=== PATIENT | female | born 1940 | race Caucasian/White ===

== ENCOUNTER 2018-01-22 14:27 | Emergency (ER) | payer OTHER ==
--- NOTE | 2018-01-22 14:43 | EDPHY ---
H & P Time Seen by Provider: 01/22/18 14:43 HPI/ROS: CHIEF COMPLAINT: Nausea, vomiting, diarrhea HISTORY OF PRESENT ILLNESS: The patient presents the ED for evaluation of 4 days of nausea, vomiting and diarrhea. The patient denies any hematemesis or melena. She denies any recent travel outside the [place] or antibiotic use. The patient does complain of generalized abdominal cramping pain. She denies any fever, cough or congestion. The patient denies any recent medication changes. REVIEW OF SYSTEMS: A comprehensive 10 point review of systems is otherwise negative aside from elements mentioned in the history of present illness. Source: Patient Exam Limitations: No limitations - Personal History Tetanus Vaccine Date: > 10 YEARS - Medical/Surgical History Hx Asthma: No Hx Chronic Respiratory Disease: No Hx Diabetes: No Hx Cardiac Disease: No Hx Renal Disease: No Hx Cirrhosis: No Hx Alcoholism: No Hx HIV/AIDS: No Hx Splenectomy or Spleen Trauma: No Other PMH: HTN, PTSD, TBI, fibromyalgia, migraines, TIA 21 of November. surgery uterus, fibroids, appendectomy, tonsillectomy - Social History Smoking Status: Former smoker - Physical Exam Exam: General Appearance: Elderly female, no acute distress Eyes: Pupils equal and round no pallor or injection ENT, Mouth: Mucous membranes moist Respiratory: There are no retractions, lungs are clear to auscultation Cardiovascular: Regular rate and rhythm Gastrointestinal: Slight distension, hyperactive bowel sounds, minimal generalized tenderness, no peritoneal signs Neurological: 5/5 strength all 4 extremities Skin: Warm and dry, no rashes Musculoskeletal: Neck is supple nontender Extremities: symmetrical, full range of motion Constitutional: Initial Vital Signs Temperature (C) 37.7 C 01/22/18 14:27 Heart Rate 108 H 01/22/18 14:27 Respiratory Rate 16 01/22/18 14:27 Blood Pressure 173/103 H 01/22/18 14:27 O2 Sat (%) 92 01/22/18 14:27 O2 Delivery Mode Room Air Allergies/Adverse Reactions: epinephrine [Epinephrine] Allergy (Intermediate, Verified 01/22/18 14:47) morphine Allergy (Intermediate, Verified 01/22/18 14:47) Sulfa (Sulfonamide Antibiotics) Allergy (Intermediate, Verified 01/22/18 14:47) hydromorphone HCl [From Dilaudid] Allergy (Verified 01/22/18 14:47) iodine Allergy (Verified 01/22/18 14:47) prednisone Allergy (Verified 01/22/18 14:47) pregabalin [From Lyrica] Allergy (Verified 01/22/18 14:47) MUSCLE RELAXANT Allergy (Uncoded 01/22/18 14:47) Home Medications: Medication Instructions Recorded Candesartan Cilexetil [Atacand] 32 mg PO DAILY 11/21/13 Oxycodone HCl/Acetaminophen 1 each PO HS PRN 11/21/13 [Percocet 10-325 mg Tablet] oxyCODONE/APAP 5/325 [Percocet 0.5 - 1 tab PO Q4H PRN 11/21/13 5/325] ALPRAZOLAM XR 03/01/14 Levomefolate/Algal Oil 08/21/15 [Deplin-Algal Oil 15 mg Capsule] Ondansetron [Ondansetron Odt] 08/21/15 Oxycontin 08/21/15 Polyethylene Glycol 3350 [Miralax 08/21/15 17 gm (OTC)] Medical Decision Making ED Course/Re-evaluation: The patient presents to the ED with gastroenteritis causing associated vomiting and diarrhea. The patient is afebrile. She is well-appearing. She had slight tachycardia and mild dehydration. The patient received IV fluid rehydration. The patient's laboratory studies are reassuring. The patient underwent serial examinations in the ED and her vomiting has resolved. This point time I do feel the patient can be discharged home with instructions to use Zofran and and Imodium. The patient was re-evaluated again by myself at 5:00 p.m.. I reviewed the results of her laboratory studies, discharge plan, return precautions and working diagnosis. Differential Diagnosis: Differential diagnosis considered includes gastroenteritis, dehydration, metabolic abnormality, perforation, obstruction - Data Points Laboratory Results: Laboratory Results 01/22/18 14:40 01/22/18 14:40 01/22/18 01/22/18 14:40 14:40 WBC 8.55 10^3/uL 10^3/uL (3.80-9.50) RBC 4.78 10^6/uL 10^6/uL (4.18-5.33) Hgb 15.3 g/dL g/dL (12.6-16.3) Hct 43.5 % % (38.0-47.0) MCV 91.0 fL fL (81.5-99.8) MCH 32.0 pg pg (27.9-34.1) MCHC 35.2 g/dL g/dL (32.4-36.7) RDW 12.5 % % (11.5-15.2) Plt Count 257 10^3/uL 10^3/uL (150-400) MPV 10.3 fL fL (8.7-11.7) Neut % (Auto) 89.7 % H % (39.3-74.2) Lymph % (Auto) 5.7 % L % (15.0-45.0) [place] % (Auto) 4.4 % L % (4.5-13.0) Eos % (Auto) 0.0 % L % (0.6-7.6) Baso % (Auto) 0.1 % L % (0.3-1.7) Nucleat RBC Rel Count 0.0 % % (0.0-0.2) Absolute Neuts (auto) 7.66 10^3/uL H 10^3/uL (1.70-6.50) Absolute Lymphs (auto) 0.49 10^3/uL L 10^3/uL (1.00-3.00) Absolute Monos (auto) 0.38 10^3/uL 10^3/uL (0.30-0.80) Absolute Eos (auto) 0.00 10^3/uL L 10^3/uL (0.03-0.40) Absolute Basos (auto) 0.01 10^3/uL L 10^3/uL (0.02-0.10) Absolute Nucleated RBC 0.00 10^3/uL 10^3/uL (0-0.01) Immature Gran % 0.1 % % (0.0-1.1) Immature Gran # 0.01 10^3/uL 10^3/uL (0.00-0.10) Sodium 137 mEq/L mEq/L (135-145) Potassium 4.4 mEq/L mEq/L (3.5-5.2) Chloride 97 mEq/L mEq/L (97-110) Carbon Dioxide 26 mEq/l mEq/l (22-31) Anion Gap 14 mEq/L mEq/L (8-16) BUN 16 mg/dL mg/dL (7-23) Creatinine 0.7 mg/dL mg/dL (0.6-1.0) Estimated GFR > 60 Glucose 122 mg/dL H mg/dL (70-100) Calcium 9.1 mg/dL mg/dL (8.5-10.4) Total Bilirubin 1.0 mg/dL mg/dL (0.1-1.4) Conjugated Bilirubin 0.4 mg/dL mg/dL (0.0-0.5) Unconjugated Bilirubin 0.6 mg/dL mg/dL (0.0-1.1) AST 33 IU/L IU/L (14-46) ALT 59 IU/L H IU/L (9-52) Alkaline Phosphatase 75 IU/L IU/L (38-126) Total Protein 6.8 g/dL g/dL (6.3-8.2) Albumin 4.0 g/dL g/dL (3.5-5.0) Lipase 58 IU/L IU/L (23-300) Medications Given: Discontinued Medications Sodium Chloride (Ns) 1,000 mls @ 0 mls/hr IV EDNOW ONE; Wide Open PRN Reason: Protocol Stop: 01/22/18 14:45 Last Admin: 01/22/18 14:55 Dose: 1,000 mls Ondansetron HCl (Zofran) 4 mg IVP EDNOW ONE Stop: 01/22/18 14:51 Last Admin: 01/22/18 14:56 Dose: 4 mg Departure - Departure Disposition: Home, Routine, Self-Care Clinical Impression: Gastroenteritis Condition: Good Instructions: Gastroenteritis (ED), Dehydration (ED) Additional Instructions: 1. Zofran as needed for nausea. 2. Imodium as needed for diarrhea 3. Return to the ED for markedly worsening symptoms or other concerns. 4. Follow up with her primary care provider as needed.
[2018-01-22] MEDS ORDERED: NS 1,000 ML IV ONE (14:44)
[2018-01-22] MEDS ORDERED: ONDANSETRON 4 MG/2 ML VIAL IVP ONE (14:50)
[2018-01-22 15:04] LABS: PLATELET COUNT 257 10^3/uL (150-400)
[2018-01-22 18:32] VITALS: BP 182/105
== END 2018-01-22 18:29 | disposition home or self-care (01) ==
LOC: EDUNIT#
DX: K52.9 Noninfective gastroenteritis and colitis, unspecified (principal); I10 Essential (primary) hypertension; E86.9 Volume depletion, unspecified; Z87.891 Personal history of nicotine dependence
CPT/HCPCS: 96374; 99284; J2405

== ENCOUNTER → 2018-03-09 | Outpatient (CLI) | payer OTHER | LOC: BMCIMAGING 12:44 | PROVIDERS: ATTEND Family Medicine | DX: R10.2 Pelvic and perineal pain (principal); R14.0 Abdominal distension (gaseous); G89.29 Other chronic pain; N83.201 Unspecified ovarian cyst, right side; N83.202 Unspecified ovarian cyst, left side; Z90.711 Acquired absence of uterus with remaining cervical stump ==

== ENCOUNTER 2018-12-06 18:53 | Emergency (ER) | payer OTHER ==
--- NOTE | 2018-12-06 18:56 | EDPHY ---
HPI/HX/ROS/PE/MDM Narrative: CHIEF COMPLAINT: Fall, right ankle pain HPI: This patient is a 78 year old female with past medial history including fibromyalgia, chronic pain, hypertension. She arrives today via EMS complaining of right ankle pain following a slip and fall on ice. She is unable to bear weight on the ankle. She denies any other trauma. She did not strike her head or lose consciousness. The patient does take multiple medications for chronic pain and nausea at home, and she declined any medications from EMS in transport. She denies any other recent trauma or illness. REVIEW OF SYSTEMS: A comprehensive 10 system review of systems is otherwise negative aside from elements mentioned in the history of present illness and medical decision making. PMH: Fibromyalgia. Chronic pain. Hypertension. PTSD. Migraines. TIA. Surgeries including appendectomy, tonsillectomy, uterine fibroid removal. SOCIAL HISTORY: Lives in [place]. Retired. Former smoker. PHYSICAL EXAM: General:Patient is alert, in no acute distress. ENT:Eyes are normal to inspection. ENT inspection normal. Neck: Normal inspection. Full range of motion. Respiratory:No respiratory distress. Breath sounds normal bilaterally. Cardiovascular: Regular rate and rhythm. Strong peripheral pulses. Normal cap refill. Abdomen:The abdomen is nontender to palpation. There are no peritoneal signs. There are normal bowel sounds. Back: Normal to inspection. No tenderness to palpation. Skin: Normal color. No rash. Warm and dry. Extremities: Tenderness and swelling over lateral ankle. Neuro: Oriented x3. Normal motor function. Normal sensory function. ED Course: 78 y/o female presents with right ankle pain following a slip and fall on ice. She has pain and swelling over the lateral ankle. Plan for x-ray for further evaluation. 19:13 Reviewed x-ray. Evidence of acute right distal fibular fracture. Reassessed patient. Discussed imaging results. Plan to splint the ankle under standard ED protocol. Plan to discharge home in good condition. We will provide crutches. Provided referral to heart specialist. She will follow up within one week. We discussed pain management for her increased pain due to the fracture. She will call her pain management doctor tomorrow morning to adjust her medication regimen as needed. Follow up and return precautions discussed. She is comfortable with this plan. - Data Points Imaging Results: Imaging Impressions Ankle X-Ray 12/06/18 18:56 Impression: Transverse obliquely oriented distal right fibular fracture, mildly displaced. Imaging: I viewed and interpreted images myself Medications Given: Discontinued Medications Oxycodone HCl (Oxycodone Ir) 10 mg PO EDNOW ONE Stop: 12/06/18 19:48 Last Admin: 12/06/18 19:59 Dose: 10 mg General Time Seen by Provider: 12/06/18 18:54 Initial Vital Signs: Initial Vital Signs Temperature (C) 36.9 C 12/06/18 18:56 Heart Rate 88 12/06/18 18:56 Respiratory Rate 16 12/06/18 18:56 Blood Pressure 146/88 H 12/06/18 18:56 O2 Sat (%) 93 12/06/18 18:56 O2 Delivery Mode Room Air O2 (L/minute) 2.5 Allergies/Adverse Reactions: epinephrine [Epinephrine] Allergy (Intermediate, Verified 12/06/18 18:58) morphine Allergy (Intermediate, Verified 12/06/18 18:58) Sulfa (Sulfonamide Antibiotics) Allergy (Intermediate, Verified 12/06/18 18:58) hydromorphone HCl [From Dilaudid] Allergy (Verified 12/06/18 18:58) iodine Allergy (Verified 12/06/18 18:58) prednisone Allergy (Verified 12/06/18 18:58) pregabalin [From Lyrica] Allergy (Verified 12/06/18 18:58) MUSCLE RELAXANT Allergy (Uncoded 12/06/18 18:58) Home Medications: Medication Instructions Recorded Candesartan Cilexetil [Atacand] 32 mg PO DAILY 11/21/13 Oxycodone HCl/Acetaminophen 1 each PO HS PRN 11/21/13 [Percocet 10-325 mg Tablet] oxyCODONE/APAP 5/325 [Percocet 0.5 - 1 tab PO Q4H PRN 11/21/13 5/325] ALPRAZOLAM XR 03/01/14 Levomefolate/Algal Oil 08/21/15 [Deplin-Algal Oil 15 mg Capsule] Ondansetron [Ondansetron Odt] 08/21/15 Oxycontin 08/21/15 Polyethylene Glycol 3350 [Miralax 08/21/15 17 gm (OTC)] Ondansetron Odt [Zofran Odt] 4 mg PO Q4PRN PRN #20 tab 01/22/18 Departure - Departure Disposition: Home, Routine, Self-Care Clinical Impression: Closed right ankle fracture Qualifiers: Encounter type: initial encounter Qualified Code(s): S82.891A - Other fracture of right lower leg, initial encounter for closed fracture Condition: Good Instructions: Ankle Fracture (ED) Additional Instructions: Rest, ice, elevation. Please call your pain management doctor tomorrow morning to discuss adjusting your medication regimen as needed for your increased pain secondary to the ankle fracture. Follow up with an orthopedic surgeon within one week. Wear splint at all times until reevaluation. Use crutches as directed. Return to the emergency department for worsening pain, swelling, numbness, weakness or other concerns. Referrals: Darrin Aviles MD [Medical Doctor] - As per Instructions Report Scribed for: Jono Darnell Report Scribed by: Audelia Soto Date of Report: 12/06/18 Time of Report: 19:39 Physician Review and Approval Statement: Portions of this note were transcribed by an ED scribe. I personally performed the history, physical exam, and medical decision making; and confirm the accuracy of the information in the transcribed note.
[2018-12-06] MEDS ORDERED: oxyCODONE IR 5 MG TAB PO ONE (19:47)
[2018-12-06 22:25] VITALS: BP 138/92
== END 2018-12-06 22:25 | disposition home or self-care (01) ==
LOC: EDUNIT#
PROC: 2W3QX1Z Immobilization of Right Lower Leg using Splint (ICD-10-PCS; principal; 2018-12-06)
DX: S82.431A Displaced oblique fracture of shaft of right fibula, initial encounter for closed fracture (principal); W00.0XXA Fall on same level due to ice and snow, initial encounter; M79.7 Fibromyalgia; G89.29 Other chronic pain; I10 Essential (primary) hypertension; Y92.9 Unspecified place or not applicable; Y99.9 Unspecified external cause status; Y93.9 Activity, unspecified

== ENCOUNTER 2018-12-07 17:08 | Inpatient (IN) | payer OTHER ==
--- NOTE | 2018-12-07 17:16 | EDPHY ---
H & P Time Seen by Provider: 12/07/18 17:10 HPI/ROS: HPI: This is a 78-year-old female who presents with Chief Complaint: Right ankle injury Location: Right ankle Quality: Injury Duration: Yesterday Signs and Symptoms: No bleeding, no radiation, no numbness, no weakness, no tingling, no incontinence, + decreased range of motion, no swelling, + pain, no fever Timing: Constant Severity: Moderate to severe Context: Patient presents via EMS with complaints of inability to ambulate, uncontrolled pain and fall risk. Patient was seen yesterday in the emergency room after she fell and slipped on the ice. She was unable to bear weight initially on the ankle. Right ankle x-ray ordered and shows transverse obliquely oriented distal right fibular fracture that is mildly displaced. Patient was appropriately splinted and given crutches. EMS reports that patient has fallen approximately 3 times in her home. Patient lives alone. Patient called her primary care doctor today and they were concerned that she was a fall risk and unable to care for herself at home. They contacted case management who reports that she needs 3 night stay in the hospital in order to receive assistance. Modifying Factors: Oxycodone and splint Comment: ROS: A comprehensive 10 system review of systems is otherwise negative aside from elements mentioned in the history of present illness. MEDICAL/SURGICAL/SOCIAL HISTORY: Medical history: HTN, PTSD, TBI, fibromyalgia, migraines, TIA 21 of November. Surgical history: surgery uterus, fibroids, appendectomy, tonsillectomy Social history: Lives alone. Denies alcohol, tobacco, drug use. CONSTITUTIONAL: Nontoxic appearing white female, speech is slightly slurred, awake and alert, no obvious distress HEENT: Atraumatic and normocephalic. NECK: supple, no midline tenderness, flexion 45 degrees, extension 45 degrees, right and left lateral flexion 45 degrees. No meningismus. Cardiovascular: Normal S1/S2, regular rate, regular rhythm, without murmur rub or gallop. PULMONARY/CHEST: Symmetrical and nontender. no crepitus. Clear to auscultation bilaterally. Good air movement. No accessory muscle usage. ABDOMEN: Soft, nondistended, nontender, no ecchymosis. PELVIC: no pain with rocking; bilateral hips flexion 125 degrees, extension 30 degrees, with no pain internal rotation and no pain external rotation. BACK: No midline tenderness, no paraspinous spasm, deep tendon reflexes 2/2, no pain with straight leg raise, No foot drop. Achilles reflexes are equal bilaterally. Able to walk on heels and toes without difficulty. EXTREMITIES: 2/2 pulses, strength 5/5, right lower leg splint appreciated. Able to wiggle all toes with good capillary refill. good light touch sensation. no deformities, no clubbing, no cyanosis or edema. NEUROLOGICAL: no focal neuro deficits. GCS 15. Light touch sensation intact. SKIN: Warm and dry, no erythema. [place]. no rash. Good capillary refill. Source: Patient, RN/MD, Old records Exam Limitations: No limitations - Personal History Tetanus Vaccine Date: > 10 YEARS - Medical/Surgical History Hx Asthma: No Hx Chronic Respiratory Disease: No Hx Diabetes: No Hx Cardiac Disease: No Hx Renal Disease: No Hx Cirrhosis: No Hx Alcoholism: No Hx HIV/AIDS: No Hx Splenectomy or Spleen Trauma: No Other PMH: HTN, PTSD, TBI, fibromyalgia, migraines, TIA 21 of November. surgery uterus, fibroids, appendectomy, tonsillectomy - Social History Smoking Status: Former smoker Constitutional: Initial Vital Signs Temperature (C) 37.1 C 12/07/18 17:31 Heart Rate 94 12/07/18 17:31 Respiratory Rate 16 12/07/18 17:31 Blood Pressure 199/101 H 12/07/18 17:31 O2 Sat (%) 96 12/07/18 17:31 O2 Delivery Mode Nasal Cannula O2 (L/minute) 2 Allergies/Adverse Reactions: epinephrine [Epinephrine] Allergy (Intermediate, Verified 12/06/18 18:58) morphine Allergy (Intermediate, Verified 12/06/18 18:58) Sulfa (Sulfonamide Antibiotics) Allergy (Intermediate, Verified 12/06/18 18:58) hydromorphone HCl [From Dilaudid] Allergy (Verified 12/06/18 18:58) iodine Allergy (Verified 12/06/18 18:58) prednisone Allergy (Verified 12/06/18 18:58) pregabalin [From Lyrica] Allergy (Verified 12/06/18 18:58) MUSCLE RELAXANT Allergy (Uncoded 12/06/18 18:58) Home Medications: Medication Instructions Recorded Candesartan Cilexetil [Atacand] 32 mg PO DAILY 11/21/13 Oxycodone HCl/Acetaminophen 1 each PO HS PRN 11/21/13 [Percocet 10-325 mg Tablet] oxyCODONE/APAP 5/325 [Percocet 0.5 - 1 tab PO Q4H PRN 11/21/13 5/325] ALPRAZOLAM XR 03/01/14 Levomefolate/Algal Oil 08/21/15 [Deplin-Algal Oil 15 mg Capsule] Ondansetron [Ondansetron Odt] 08/21/15 Oxycontin 08/21/15 Polyethylene Glycol 3350 [Miralax 08/21/15 17 gm (OTC)] Ondansetron Odt [Zofran Odt] 4 mg PO Q4PRN PRN #20 tab 01/22/18 Medical Decision Making ED Course/Re-evaluation: Patient's pain is currently controlled on arrival to the emergency room as EMS gave patient 20 mg of ketamine en route IV access and laboratory studies obtained. Patient is having frequent falls while at home, unable to ambulate with right distal fibular fracture. ED decision to consult hospitalist and Orthopedics for admission. Spoke with Dr. Araya who kindly agrees to admit patient. Spoke with Dr. Barragan who kindly agrees to consult on the patient. No signs of neurovascular compromise/tenting of skin/compartment syndrome/ extremities and joints examined above and below area of concern and are neurovascularly intact. This patient was seen under the supervision of my secondary supervising physician. I evaluated care for this patient with attending. Discussed this patient with . Differential Diagnosis: Differential diagnosis includes but is not limited to fibular fracture, inability to ambulate, acute on chronic pain. Departure - Departure Disposition: [facility] Inpatient Acute Clinical Impression: Inability to ambulate due to ankle or foot Closed right fibular fracture Qualifiers: Encounter type: initial encounter Fibula location: distal Fracture morphology: torus Qualified Code(s): S82.821A - Torus fracture of lower end of right fibula , initial encounter for closed fracture Condition: Fair
[2018-12-07 17:51] LABS: PLATELET COUNT 214 10^3/uL (150-400)
[2018-12-07] MEDS ORDERED: ACETAMINOPHEN 325 MG TAB PO PRN (18:26)
[2018-12-07] MEDS ORDERED: PROMETHAZINE HCL 25 MG/ML INJ IVP PRN (18:26)
[2018-12-07] MEDS ORDERED: HYDROCODONE/APAP 5/325 TAB PO PRN (18:26)
[2018-12-07] MEDS ORDERED: oxyCODONE IR 5 MG TAB PO PRN (18:26)
[2018-12-07] MEDS ORDERED: HYDROmorphONE/DILAUDID 1 MG/ML INJ IVP PRN (18:26)
[2018-12-07] MEDS ORDERED: traMADol 50 MG TAB PO PRN (18:28)
[2018-12-07] MEDS ORDERED: POLYETHYLENE GLYCOL 3350 17 GM PKT PO PRN (18:28)
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
[2018-12-07] MEDS: ALPRAZolam 1 MG TAB PO SCH (19:40)
[2018-12-07] MEDS: GABAPENTIN 100 MG CAP PO SCH (23:42)
[2018-12-08] MEDS: oxyCODONE IR 5 MG TAB PO PRN ×4 (00:54→17:28)
[2018-12-08] MEDS: MELATONIN 3 MG TAB PO SCH ×2 (01:35→22:23)
[2018-12-08] MEDS: MULTIVITAMINS 1 EACH TAB PO SCH (07:52)
[2018-12-08] MEDS: GABAPENTIN 100 MG CAP PO SCH ×3 (07:52→22:23)
[2018-12-08] MEDS: ESTRADIOL 0.5 MG TAB PO SCH (07:52)
[2018-12-08] MEDS: CHOLECALCIFEROL VIT D3 2,000 UNITS TAB/CAP PO SCH (07:53)
[2018-12-08] MEDS: CANDESARTAN CILEXETIL 8 MG TAB PO SCH (07:53)
[2018-12-08] MEDS: ENOXAPARIN 40 MG/0.4 ML SYR SC SCH (07:54)
--- NOTE | 2018-12-08 08:41 | GCON ---
[f rep st] CONSULTATION REASON FOR CONSULTATION: Right ankle injury. HISTORY RELATIVE TO CONSULTATION: The patient is a 78-year-old who, 1 day prior, sustained a fall re sulting in right ankle pain. She was evaluated initially in the Emergency Room and placed in a splin t. She was having difficulty ambulating at home but re-presented. She denies any previous problems or injuries relative to her ankle. PHYSICAL EXAM: GENERAL: The patient is alert and oriented x3, in mild distress secondary to her ank le issues. EXTREMITIES: She is in a well-padded posterior splint. Palpation through the splint rev eals tenderness along the distal aspect of her fibula. She has minimal medial tenderness. Her dista l neurovascular exam is intact. IMAGING: Radiographs of her ankle show evidence of a minimally displaced oblique lateral malleolus f racture. There is no evidence of mortise widening. ASSESSMENT: Dynamically stable right lateral malleolus fracture. PLAN: It is likely that this is a stable fracture which can be treated favorably nonoperatively. Sh e will continue with her posterior splint. Followup will be in approximately 1 week, at which point, repeat radiographs can be obtained. /[id number]/MODL
--- NOTE | 2018-12-08 09:01 | HOSPPROG ---
Hospitalist Progress Note Assessment/Plan: 78 yo F with PMH of fibromyalgia and associated chronic pain with continuous opiate use and dependency as well as depression and ptsd admitted s/p right fibular fracture with inability to ambulate. First encounter, chart reviewed. # gait instability w recent mechanical fall - due to recent ankle fracture -underlying debility from chronic pain and deconditioning -PT and OT to see and evaluate -she shared in took two of her friends to get her to the bathroom and feels she is unable to manage at home # right fibular fracture -occurred on 12/07 -appreciate Dr Barragan seeing her-her fx can be treated non-operatively # chronic pain with continuous opiate use and dependency -pain well managed today -home regimen resumed w prn medications added -will get an Integrative care consult # depression (longstanding and uncontrolled) - may be a candidate for ECT therapy -# placed in dc instructions # fibromyalgia -no c/o this today # htn, uncontrolled -prn medications ordered Subjective: Alicia has no c/o pain, has very little appetite. Objective: Vital Signs Temp Pulse Resp BP Pulse Ox 37.5 C 107 H 18 182/105 H 92 12/08/18 07:28 12/08/18 07:28 12/08/18 07:28 12/08/18 07:28 12/08/18 07:28 12/07/18 12/08/18 12/09/18 05:59 05:59 05:59 Intake Total 400 Output Total 300 450 Balance 100 -450 - Physical Exam Constitutional: no apparent distress, appears nourished, not in pain Eyes: PERRL Ears, Nose, Mouth, Throat: hearing normal Cardiovascular: regular rate and rhythym Respiratory: no respiratory distress Gastrointestinal: normoactive bowel sounds Skin: warm Musculoskeletal: other (right toes w good cms) Neurologic: AAOx3, sensation intact bilaterally Psychiatric: interacting appropriately, not anxious ICD10 Worksheet Patient Problems: Problems Problem Status Onset Closed right fibular fracture Acute Inability to ambulate due to ankle or foot Acute TIA (transient ischemic attack) Acute
--- NOTE | 2018-12-08 10:29 | PDMN ---
Medical Necessity Medical necessity: Pt meets IP criteria per MD & MCG MG-MD Musculoskeletal Disease; est los >2 mn for eval/tx of R fibular fx w/inability to ambulate, pain & uncontrolled hypertension; requiring Ortho consult, PT/OT evals, CM consult for dc planning, pain management & IV Hydralazine; comorbid advanced age , TBI, TIA, fibromyalgia & chronic pain; per H&P & order 12/07/18
--- NOTE | 2018-12-08 11:24 | ASMTCASEMG ---
Living Arrangements What is your living Answers: Alone arrangement? Who do you live with? Type Of Residence What kind of residence do Answers: House you live in? Discharge Plan Comments Coordination Status Comments Notes: Patient is a 78yo single female with a hx of fibromyalgia and associated chronic pain with continuous opiate use and depression who has been admitted for a closed right tibular fracture and inability to ambulate. OT/PT have been ordered. Patient will most likely need SNF rehab. D/C plan TBD. DM will follow. Date Signed: 12/08/2018 11:23 AM Electronically Signed By:Virginia Montoya LCSW
[2018-12-08] MEDS: ONDANSETRON DISINTEGRATING 4 MG TAB PO PRN (15:45)
[2018-12-08] MEDS: ONDANSETRON 4 MG/2 ML VIAL IVP PRN (15:54)
[2018-12-08] MEDS: hydrALAZINE 20 MG/ML VIAL IVP PRN ×2 (19:37)
[2018-12-08] MEDS: ALPRAZolam 1 MG TAB PO SCH (22:23)
[2018-12-09] MEDS: oxyCODONE IR 5 MG TAB PO PRN ×4 (04:30→16:30)
[2018-12-09] MEDS: CANDESARTAN CILEXETIL 8 MG TAB PO SCH (07:36)
[2018-12-09] MEDS: CHOLECALCIFEROL VIT D3 2,000 UNITS TAB/CAP PO SCH (07:36)
[2018-12-09] MEDS: ESTRADIOL 0.5 MG TAB PO SCH (07:37)
[2018-12-09] MEDS: GABAPENTIN 100 MG CAP PO SCH ×4 (07:37→22:37)
[2018-12-09] MEDS: MULTIVITAMINS 1 EACH TAB PO SCH (07:37)
[2018-12-09] MEDS: hydrALAZINE 20 MG/ML VIAL IVP PRN ×2 (08:37→16:31)
[2018-12-09] MEDS: ENOXAPARIN 40 MG/0.4 ML SYR SC SCH (08:44)
[2018-12-09] MEDS: amLODIPine BESYLATE 5 MG TAB PO SCH (10:44)
[2018-12-09] MEDS: DOCUSATE SODIUM 100 MG CAP PO SCH ×2 (10:44→22:21)
--- NOTE | 2018-12-09 12:21 | ASMTCMCOM ---
CM Note CM Note Notes: Met with pt and friends who help pt re; dc poc. PT/OT recommend SNF since pt is unable to care for self at home with a tib/fib fracture. They would like a referral sent to [facility]. DC Plan: SNF Date Signed: 12/09/2018 12:21 PM Electronically Signed By:Brittany Costello RN
[2018-12-09] MEDS: ONDANSETRON 4 MG/2 ML VIAL IVP PRN ×2 (13:09→22:29)
--- NOTE | 2018-12-09 15:51 | HOSPPROG ---
Hospitalist Progress Note Assessment/Plan: 78 yo F with PMH of fibromyalgia and associated chronic pain with continuous opiate use and dependency as well as depression and ptsd admitted s/p right fibular fracture with inability to ambulate. First encounter, chart reviewed. # gait instability w recent mechanical fall - due to recent ankle fracture -underlying debility from chronic pain and deconditioning -PT and OT to see and evaluate -she shared in took two of her friends to get her to the bathroom and feels she is unable to manage at home # right fibular fracture -occurred on 12/07 -appreciate Dr Barragan seeing her-her fx can be treated non-operatively #HTN -conts to be elevated -add norvasc -follow # chronic pain with continuous opiate use and dependency -pain well managed today -home regimen resumed w prn medications added -will get an Integrative care consult # depression (longstanding and uncontrolled) - may be a candidate for ECT therapy -# placed in dc instructions # fibromyalgia -no c/o this today # htn, uncontrolled -prn medications ordered #Dispo -will need SNF -D/W CM -cont current plan Subjective: Feeling well. Needs a shower. No pain. Objective: Vital Signs Temp Pulse Resp BP Pulse Ox 37.2 C 100 12 161/82 H 94 12/09/18 11:09 12/09/18 11:09 12/09/18 11:09 12/09/18 11:09 12/09/18 11:09 12/08/18 12/09/18 12/10/18 05:59 05:59 05:59 Intake Total 400 600 350 Output Total 300 450 Balance 100 150 350 - Physical Exam Constitutional: no apparent distress, appears nourished, not in pain Eyes: PERRL, anicteric sclera, EOMI Ears, Nose, Mouth, Throat: moist mucous membranes, hearing normal, ears appear normal Cardiovascular: regular rate and rhythym, No JVD, No edema Respiratory: no respiratory distress, no rales or rhonchi, reduced air movement Gastrointestinal: normoactive bowel sounds, No tenderness, No ascites Skin: warm, normal color, No mottled Musculoskeletal: joint tenderness, pain with ROM, generalized weakness Neurologic: AAOx3 Psychiatric: interacting appropriately, not anxious, not encephalopathic, thought process linear ICD10 Worksheet Patient Problems: Problems Problem Status Onset TIA (transient ischemic attack) Acute Inability to ambulate due to ankle or foot Acute Closed right fibular fracture Acute
[2018-12-09] MEDS: ALPRAZolam 1 MG TAB PO SCH (22:22)
[2018-12-09] MEDS: MELATONIN 3 MG TAB PO SCH (22:22)
[2018-12-10] MEDS: oxyCODONE IR 5 MG TAB PO PRN ×2 (05:06→13:32)
[2018-12-10] MEDS: CANDESARTAN CILEXETIL 8 MG TAB PO SCH (08:04)
[2018-12-10] MEDS: ONDANSETRON DISINTEGRATING 4 MG TAB PO PRN (08:04)
[2018-12-10] MEDS: DOCUSATE SODIUM 100 MG CAP PO SCH (08:05)
[2018-12-10] MEDS: GABAPENTIN 100 MG CAP PO SCH (08:06)
[2018-12-10] MEDS: amLODIPine BESYLATE 5 MG TAB PO SCH (08:07)
[2018-12-10] MEDS: MULTIVITAMINS 1 EACH TAB PO SCH (08:08)
[2018-12-10] MEDS: ENOXAPARIN 40 MG/0.4 ML SYR SC SCH (08:08)
[2018-12-10] MEDS: CHOLECALCIFEROL VIT D3 2,000 UNITS TAB/CAP PO SCH (08:08)
[2018-12-10] MEDS: ESTRADIOL 0.5 MG TAB PO SCH (08:08)
--- NOTE | 2018-12-10 10:58 | PDIAF ---
- Diagnosis Diagnosis: R fib fx Code Status: Full Code - Medication Management Discharge Medications: electronically signed and located in the Home Medication List. PICC Care - Routine: N/A - Orders Services needed: Registered Nurse, Physical Therapy, Occupational Therapy Diet Recommendation: no restrictions on diet Additional Instructions: Consider calling [facility] psychiatry service for more information on treatment of depression, including ECT. - Follow Up Care Current Providers and Referrals: Reuben Wu MD [Medical Doctor] - (consider establishing care for management options for PTSD) Erick Barragan MD [Medical Doctor] - follow up in 1 week (THE PLAN IS TO TREAT THIS NON-OPERATIVELY. TOUCH DOWN WEIGHT BEARING TO THE RIGHT LEG. MAINTAIN THE POSTERIOR LEG SPLINT. FOLLOW UP IN ORTHO OFFICE IN 1 WEEK, WILL GET XRAYS AT THAT TIME. ) Bernabe Lainez, [Primary Care Provider] -
[2018-12-10 11:32] VITALS: BP 174/88
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
--- NOTE | 2018-12-10 11:55 | ASMTDCNOTE ---
Case Management Discharge Discharge Order Complete? Answers: Yes Patient to Obtain Answers: Other Notes: [facility] Transportation Arranged Answers: Other Notes: [facility] Transport will Pick (Date 12/10/2018 02:00 PM & Time) Faxed Final Orders Answers: Yes Agency/Facility Transfer Answers: Yes Report Printed & Faxed to Receiving Agency Family Notified Answers: Yes Discharge Comments Notes: D/w LOG WASHER, final orders faxed. Tono burnham came to meet with pt today. CM notified pt's friend Chalino of [employer], his will bring pt clothes to rehab. RN to call report. Date Signed: 12/10/2018 11:36 AM Electronically Signed By:Brittany Costello RN
[2018-12-10] MEDS: hydrALAZINE 20 MG/ML VIAL IVP PRN (12:54)
--- NOTE | 2018-12-10 15:55 | GDS ---
[f rep st] DISCHARGE SUMMARY DISCHARGE DIAGNOSES: 1. Mechanical fall. 2. Right fibular fracture. 3. Hypertension. 4. Chronic pain with continuous opioid use and dependency. 5. Depression. 6. Fibromyalgia. 7. Hypertension. CONSULTATIONS: Dr. Barragan of Orthopedics. PHYSICAL EXAMINATION: GENERAL: The patient is alert. VITAL SIGNS: Afebrile at 37.2, pulse is 86, respiratory rate is 20. Blood pressure is 162/88. She is saturating 93% on room air. I have seen and evaluated the patient on the day of discharge. HOSPITAL COURSE: The patient is a 78-year-old female who presented to the emergency room with compla ints of right leg pain. She was evaluated and diagnosed with: 1. Right fibular fracture. This occurred on 12/07/2018. She did receive a consultation from Dr. Lizama. No surgical intervention was warranted secondary to her fracture. She will continue to follow Dr. Barragan in the outpatient setting. 2. Gait instability with mechanical fall. Physical Therapy and Occupational Therapy have recommende d detention for the patient at the time of disposition. 3. Hypertension. Medications have been adjusted during this hospitalization. She will require foll owup in the outpatient setting with her primary care physician for further medication adjustment. 4. Chronic pain with continuous opiate use and dependency. Her pain is well managed today. Her filipe e regimen has been continued. 5. Depression. This is longstanding at baseline. The patient has been recommended to follow up in the outpatient setting with Psychiatry. 6. Fibromyalgia. This is stable. 7. Disposition. The patient will be discharged to detention for further rehabilitation and ma nagement. There are no pending studies. DISCHARGE MEDICATIONS: Please refer to EMR form. New prescriptions include Norvasc 5 mg daily, Cola ce, Lovenox, Beeson, melatonin, Zofran. I have not discontinued any of the patient's previously-presc ribed home medications to the best of my knowledge. TIME SPENT WITH PATIENT: I spent greater than 35 minutes in the care, coordination, and management o f the patient's disposition. /[id number]/MODL
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
== END 2018-12-10 14:09 | DRG 563 ==
LOC: EDUNIT# → UNDOADMIN 17:36 → F3E 18:37
PROVIDERS: ADMIT Internal Medicine; ATTEND Internal Medicine
DX: S82.61XA Displaced fracture of lateral malleolus of right fibula, initial encounter for closed fracture (principal); F11.20 Opioid dependence, uncomplicated; W00.0XXA Fall on same level due to ice and snow, initial encounter; I10 Essential (primary) hypertension; F43.10 Post-traumatic stress disorder, unspecified; D50.9 Iron deficiency anemia, unspecified; G89.29 Other chronic pain; F32.9 Major depressive disorder, single episode, unspecified; Z87.891 Personal history of nicotine dependence
CPT/HCPCS: 97162-GP; 97165-GO; 97530-GP; J0360; J1170; J1650; J2405; J2550

== ENCOUNTER → 2019-04-05 | Outpatient (CLI) | payer OTHER | LOC: FIMAGING 15:21 ==